=== PATIENT | male | born 1995 | race Caucasian/White ===

== ENCOUNTER 2016-11-25 18:19 | Emergency (ER) | payer MEDICAID, OTHER ==
[2016-11-25] MEDS ORDERED: Naproxen 550 mg Tab PO STA ×2 (18:43→18:55)
[2016-11-25] MEDS ORDERED: Naproxen 550 mg Tab PO ONE ×2 (18:45→19:08)
[2016-11-25] MEDS ORDERED: Bacitracin 500 Units/gm Oint Foilpak UD TOP ONE (18:47)
[2016-11-25 19:07] VITALS: BP 131/74; PULSE 85; RESP 18; TEMP 98.3; O2SAT 98
--- NOTE | 2016-11-25 19:37 | C.PDOC ---
History Of Present Illness 21 year old patient presents to the ED complaining of left knee pain that began when he twisted his knee playing basketball around 2 pm today. Patient states the pain has been persistent and is worse with ambulation. Patient has a history of torn ACL. He applied ice prior to arrival. Time Seen by Provider: 11/25/16 18:45 Chief Complaint (Nursing): Lower Extremity Problem/Injury History Per: Patient History/Exam Limitations: no limitations Onset/Duration Of Symptoms: Hrs (2 pm today) Current Symptoms Are (Timing): Still Present Severity: Moderate Pain Scale Rating Of: 4 Recent travel outside of the [place]: No - Knee Description Of Injury: Twisted Currently Unable To: Other (ambulation) Alleviating Factor(s): Ice Therapy Past Medical History Reviewed: Historical Data, Nursing Documentation, Vital Signs Vital Signs: Last Vital Signs Temp 98.3 F 11/25/16 18:57 Pulse 85 11/25/16 18:57 Resp 18 11/25/16 18:57 BP 131/74 11/25/16 18:57 Pulse Ox 98 11/25/16 21:24 Family History: States: Unknown Family Hx - Social History Hx Tobacco Use: Yes Hx Alcohol Use: No Hx Substance Use: Yes - Immunization History Hx Tetanus Toxoid Vaccination: No Hx Influenza Vaccination: No Hx Pneumococcal Vaccination: No Review Of Systems Except As Marked, All Systems Reviewed And Found Negative. Constitutional: Negative for: Fever Musculoskeletal: Positive for: Other (left knee pain) Neurological: Negative for: Weakness, Numbness Physical Exam - Physical Exam Appears: Non-toxic, No Acute Distress Skin: Warm, Dry, No Ecchymosis Head: Atraumatic, Normacephalic Eye(s): bilateral: Normal Inspection Neck: Normal ROM, Supple Chest: Symmetrical Extremity: No Calf Tenderness, No Deformity, No Swelling, Other (tenderness to the anterior and medial aspect of the left knee; no deformities; no swelling; no ecchymosis; no erythema; pain with flexion; normal distal pulse) Neurological/Psych: Oriented x3, Normal Speech, Normal Motor, Normal Sensation ED Course And Treatment O2 Sat by Pulse Oximetry: 98 (room air) Pulse Ox Interpretation: Normal - Other Rad left knee x-ray X-Ray: Viewed By Me Interpretation: No fracture or dislocation. left tibia/fibula x-ray X-Ray: Viewed By Me Interpretation: No fracture or dislocation. Medical Decision Making Medical Decision Making: Impression: 21 y/o male with left knee pain Plan: * Left knee x-ray * naproxen Progress: Knee Xray shows no acute fracture, dislocation or effusion plan was for knee immobilizer, crutches Patient eloped prior to discharge papers or treatment. Disposition Counseled Patient/Family Regarding: Need For Followup, Rx Given - Disposition Referrals: Roseanne Partida MD [Staff Provider] - Disposition: ELOPEMENT - ER ONLY Disposition Time: 19:37 Condition: STABLE Additional Instructions: Your xray is normal, no fracture. Please apply ice to area 15-20 min two to three times per day. Take Motrin or other anti-inflammatory medication, with food to not upset stomach. Follow up with orthopedic if pain persists over one week. Prescriptions: Naproxen [Naprosyn] 1 tab PO BID PRN #25 tab PRN Reason: Pain Instructions: Knee Sprain (ED) - POA Present On Arrival: None - Clinical Impression Clinical Impression: Knee sprain - PA / [employer] / Resident Statement MD/DO has reviewed & agrees with the documentation as recorded. - Scribe Statement The provider has reviewed the documentation as recorded by the Scribe Claudine Gamboa All medical record entries made by the Scribe were at my direction and personally dictated by me. I have reviewed the chart and agree that the record accurately reflects my personal performance of the history, physical exam, medical decision making, and the department course for this patient. I have also personally directed, reviewed, and agree with the discharge instructions and disposition.
--- NOTE | 2016-11-26 08:47 | RAD ---
PROCEDURE: Left Knee Radiographs. HISTORY: Pain. COMPARISON: None. FINDINGS: BONES: Normal. No fracture. JOINTS: Normal. No osteoarthritis. JOINT EFFUSION: None. OTHER FINDINGS: None. IMPRESSION: No evidence of acute fracture or dislocation.
== END 2016-11-25 20:18 | disposition left against medical advice (07) ==
LOC: C.ER 18:19
DX: S83.92XA Sprain of unspecified site of left knee, initial encounter (principal); X50.1XXA Overexertion from prolonged static or awkward postures, initial encounter; Y93.67 Activity, basketball; Y92.89 Other specified places as the place of occurrence of the external cause